=== PATIENT | female | born 1985 | race African-American/Black ===

== ENCOUNTER 2017-07-20 07:44 | Emergency (ER) | payer MEDICARE, MEDICAID ==
--- NOTE | 2017-07-20 08:32 | RAD ---
PA AND LATERAL VIEWS OF CHEST: Date: 07/20/17 HISTORY: Cough. Fever. FINDINGS: Comparison made with exam of 04/19/14. The cardiomediastinum is normal. The lungs are well expanded and clear. The bony thorax is normal. IMPRESSION: Normal exam. POS: OFF
[2017-07-20] MEDS ORDERED: Acetaminophen 500 MG TAB ONE (08:54)
== END 2017-07-20 10:20 | disposition home or self-care (01) ==
LOC: ERS 07:44
DX: B34.9 Viral infection, unspecified (principal)
CPT/HCPCS: 71020

== ENCOUNTER 2018-08-04 21:36 | Emergency (ER) | payer MEDICARE, MEDICAID | END 2018-08-04 21:55 | disposition home or self-care (01) | LOC: ERS 21:36 | DX: K04.7 Periapical abscess without sinus (principal); K02.9 Dental caries, unspecified; Z79.899 Other long term (current) drug therapy | CPT/HCPCS: 99282 ==

== ENCOUNTER 2018-08-28 16:51 | Emergency (ER) | payer MEDICARE, MEDICAID ==
[2018-08-28] MEDS ORDERED: Ondansetron PF 4 MG/2 ML Vial ONE (17:22)
[2018-08-28 17:42] LABS: Bilirubin Negative (Negative); Blood, Urine Negative (Negative); Clarity CLOUDY (Clear); Glucose, Urine (Dipstick) Negative (Negative); Leukocyte Large (Negative); Nitrite Positive (Negative); Protein, Urine (Dipstick) Negative (Neg-Trace); Specific Gravity, Urine 1.021 (1.002-1.036); pH, Urine 6.5 (5.0-9.0)
[2018-08-28 17:45] LABS: Bacteria/HPF 4+ HPF (None Seen); Hyaline Casts/LPF 0-3 HYALINE CAST LPF (0-3 Hyaline); Pathc Cast-AUWi Flag 0.58 (0-2.49)
[2018-08-28 17:49] LABS: BHCG - Serum Negative (NEGATIVE); Pregs Control Background? CLEAR/WHITE (CLR/WHITE); Pregs Control Bar Appear? YES (CONTROL BAR)
[2018-08-28 18:03] LABS: #Eosinphils 0.1 thou/uL (0.0-0.7); #Lymphocytes 2.6 thou/uL (1.20-3.40); #Monocytes 1.1 thou/uL (0.11-0.59); #Neutrophils 6.1 thou/uL (1.40-6.50); %Basophils 0.1 % (0.0-1.0); %Eosinophils 1.4 % (0.0-10.0); %Lymphocytes 26.4 % (21.0-51.0); %Monocytes 11.3 % (0.0-10.0); %Neutrophils 60.9 % (42.0-75.0); ALT (SGPT) 7 U/L (8-55); AST (SGOT) 12 U/L (5-34); Albumin 4.1 g/dL (3.5-5.0); Alkaline Phosphatase 65 U/L (40-150); Anion Gap 11 mmol/L (10-20); BUN (Urea Nitrogen) 9 mg/dL (7.0-18.7); Bilirubin, Total 0.9 mg/dL (0.2-1.2); Calc. Creatinine Clearance 0 mL/min (70-130); Calcium 9.3 mg/dL (7.8-10.44); Carbon Dioxide 26 mmol/L (22-29); Chloride 105 mmol/L (98-107); Estimated GFR-MDRD Greater than 90; Globulin 3.4 g/dL (2.4-3.5); Glucose 91 mg/dL (70-105); Hemoglobin 14.9 g/dL (12.0-16.0); Lipase 19 U/L (8-78); Mean Corpuscular HGB CONC 34.8 g/dL (32.0-36.0); Mean Corpuscular Hemoglobin 31.4 pg (27.0-31.0); Mean Corpuscular Volume 90.3 fL (78.0-98.0); Mean Platelet Volume 8.1 fL (7.4-10.4); Platelet Count 187 thou/uL (130-400); Potassium 3.4 mmol/L (3.5-5.1); Protein, Total 7.5 g/dL (6.0-8.3); RBC Distribution Width 11.6 % (11.5-14.5); Red Blood Cell (RBC) Count 4.75 mill/uL (4.20-5.40); Sodium 139 mmol/L (136-145)
[2018-08-28] MEDS ORDERED: Sulfameth/Trimethoprim DS 800-160mg TAB ONE (18:22)
[2018-08-28] MEDS ORDERED: cefTRIAXone\\ROCEPHIN 1 GM VIAL ONE (18:22)
--- NOTE | 2018-08-28 18:55 | CT ---
CT OF THE ABDOMEN AND PELVIS WITH IV CONTRAST: 08/28/18 PROVIDED CLINICAL HISTORY: Abdominal pain. FINDINGS: The visualized lung bases are free of significant opacity. The liver, spleen, pancreas, kidneys, and adrenal glands appear unremarkable. Evaluation for fat stranding is limited given paucity of intra-abdominal fat and lack of enteric cont rast material. There is no evidence for bowel obstruction. There is no evidence for free air. There i s no evidence for significant free intraperitoneal fluid. There is an enlarged and inhomogeneous appe arance to the uterus that may reflect changes related to phase of menstruation. The appendix is parti ally visualized and the partially visualized portions appear normal. The osseous structures demonstrate no concerning osteoblastic or osteolytic lesions. IMPRESSION: No definite evidence for an acute process with limitations as above. POS: RODOLFO
== END 2018-08-28 19:59 | disposition home or self-care (01) ==
LOC: ERS 16:51
DX: N39.0 Urinary tract infection, site not specified (principal); J06.9 Acute upper respiratory infection, unspecified; F31.9 Bipolar disorder, unspecified; Z79.899 Other long term (current) drug therapy
CPT/HCPCS: 74177; 80053; 81003; 81015; 83690; 84703; 85025; 96361; 96365; 96375; J0696; J2405

== ENCOUNTER 2019-01-27 14:05 | Emergency (ER) | payer MEDICARE, OTHER ==
[2019-01-27] MEDS ORDERED: Dexamethasone 10 MG/ML VIAL ONE (14:23)
== END 2019-01-27 14:27 | disposition home or self-care (01) ==
LOC: ERS 14:05
DX: J32.0 Chronic maxillary sinusitis (principal); F31.9 Bipolar disorder, unspecified; F41.9 Anxiety disorder, unspecified; F17.210 Nicotine dependence, cigarettes, uncomplicated; Z79.899 Other long term (current) drug therapy
CPT/HCPCS: 99283; J1100

== ENCOUNTER 2019-02-06 21:49 | Emergency (ER) | payer MEDICARE, OTHER ==
[2019-02-06] MEDS ORDERED: Dexamethasone 4 mg/ml Vial ONE (22:02)
== END 2019-02-06 22:10 | disposition home or self-care (01) ==
LOC: ERS 21:49
DX: J02.9 Acute pharyngitis, unspecified (principal); F41.9 Anxiety disorder, unspecified; F17.210 Nicotine dependence, cigarettes, uncomplicated
CPT/HCPCS: 99282; J1100

== ENCOUNTER 2019-05-01 14:08 | Emergency (ER) | payer MEDICARE, OTHER | END 2019-05-01 14:43 | disposition home or self-care (01) | LOC: ERS 14:08 | DX: S91.312D Laceration without foreign body, left foot, subsequent encounter (principal); F41.9 Anxiety disorder, unspecified; F33.9 Major depressive disorder, recurrent, unspecified; Z79.899 Other long term (current) drug therapy; W20.8XXA Other cause of strike by thrown, projected or falling object, initial encounter ==

== ENCOUNTER 2019-06-20 17:05 | Emergency (ER) | payer MEDICARE, OTHER ==
[2019-06-20] MEDS ORDERED: Ketorolac Tromethamine 30 MG/ML VIAL ONE (17:33)
--- NOTE | 2019-06-20 17:36 | RAD ---
Chest one view HISTORY: Cough. Fever. Dyspnea. COMPARISON: 07/20/2017. FINDINGS: Cardiac silhouette is magnified by projection. Pulmonary vasculature is unremarkable. Media stinum is midline. No lobar consolidation or evidence of pneumothorax. IMPRESSION: No active cardiopulmonary abnormalities are demonstrated.
--- NOTE | 2019-06-20 17:53 | RAD ---
Chest one view, lateral view only: HISTORY: Cough COMPARISON: 06/20/2019 5:13 PM PA radiograph No acute intrathoracic disease. No evidence for pneumonia. IMPRESSION: No evidence for pneumonia.
[2019-06-20 17:56] LABS: #Basophils 0.1 thou/uL (0.0-0.2); #Eosinphils 0.2 thou/uL (0.0-0.7); #Lymphocytes 2.7 thou/uL (1.20-3.40); #Monocytes 0.8 thou/uL (0.11-0.59); #Neutrophils 4.1 thou/uL (1.40-6.50); %Basophils 1.4 % (0.0-1.0); %Lymphocytes 34.2 % (21.0-51.0); %Monocytes 9.8 % (0.0-10.0); %Neutrophils 51.6 % (42.0-75.0); Mean Corpuscular HGB CONC 36.2 g/dL (32.0-36.0); Mean Corpuscular Hemoglobin 32.8 pg (27.0-31.0); Mean Corpuscular Volume 90.7 fL (78.0-98.0); Mean Platelet Volume 8.2 fL (7.4-10.4); Platelet Count 210 thou/uL (130-400); RBC Distribution Width 11.7 % (11.5-14.5); Red Blood Cell (RBC) Count 4.57 mill/uL (4.20-5.40); White Blood Cell (WBC) Count 7.9 thou/uL (4.8-10.8)
[2019-06-20 17:59] LABS: BHCG - Serum Negative (NEGATIVE); Pregs Control Background? CLEAR/WHITE (CLR/WHITE); Pregs Control Bar Appear? YES (CONTROL BAR)
[2019-06-20 18:13] LABS: ALT (SGPT) Less than 7 U/L (8-55); AST (SGOT) 11 U/L (5-34); Albumin 3.7 g/dL (3.5-5.0); Alkaline Phosphatase 60 U/L (40-110); Anion Gap 12 mmol/L (10-20); BUN (Urea Nitrogen) 5 mg/dL (7.0-18.7); Bilirubin, Total 0.3 mg/dL (0.2-1.2); Calc. Creatinine Clearance 0 mL/min (70-130); Calcium 8.8 mg/dL (7.8-10.44); Carbon Dioxide 22 mmol/L (22-29); Chloride 106 mmol/L (98-107); Estimated GFR-MDRD Greater than 90; Globulin 3.4 g/dL (2.4-3.5); Glucose 105 mg/dL (70-105); Potassium 3.5 mmol/L (3.5-5.1); Protein, Total 7.1 g/dL (6.0-8.3); Sodium 136 mmol/L (136-145)
--- NOTE | 2019-06-20 19:23 | CT ---
CT ANGIO OF CHEST WITH AND WITHOUT CONTRAST: 06/20/19 HISTORY: Cough. Fever and chills. Chest pain. FINDINGS: There is good contrast opacification of the pulmonary arteries and thoracic aorta with normal branchi ng of the great vessels at the aortic arch. Airway is patent. No pleural fluid, mediastinal adenopath y, or focal air space disease. IMPRESSION: Normal exam. POS: BST
== END 2019-06-20 20:08 | disposition home or self-care (01) ==
LOC: ERS 17:05
DX: J02.9 Acute pharyngitis, unspecified (principal); F41.9 Anxiety disorder, unspecified; F31.9 Bipolar disorder, unspecified; F17.210 Nicotine dependence, cigarettes, uncomplicated
CPT/HCPCS: 71045; 71275; 80053; 84484; 84703; 85025; 85379; 87804; 93005; 96374; J1885

== ENCOUNTER 2020-05-28 11:29 | Emergency (ER) | payer MEDICARE, OTHER ==
[2020-05-29 15:39] LABS: SARS-CoV-2 MS2 Positive; SARS-CoV-2 N Gene Negative; SARS-CoV-2 S Gene Negative; SARS-CoV-2 by NAA Not Detected (NotDetected); SARS-CoV-2 orf1ab Negative
== END 2020-05-28 12:00 | disposition home or self-care (01) ==
LOC: ERS 11:29
DX: Z20.828 Contact with and (suspected) exposure to other viral communicable diseases (principal); F41.9 Anxiety disorder, unspecified; F31.9 Bipolar disorder, unspecified; F17.210 Nicotine dependence, cigarettes, uncomplicated
CPT/HCPCS: 99283; U0003; 87635

== ENCOUNTER 2020-09-26 18:24 | Emergency (ER) | payer MEDICARE, OTHER ==
--- NOTE | 2020-09-26 21:30 | CT ---
CT BRAIN WITHOUT CONTRAST: HISTORY: Hypertension, headache COMPARISON: 06/01/2014 FINDINGS: No evidence of acute infarct, hemorrhage, midline shift or abnormal extra-axial fluid collections is seen. The ventricular size is appropriate and the basilar cisterns are patent. The bony calvarium is intact. The visualized paranasal sinuses and mastoid air cells are well aerated. IMPRESSION: No CT evidence of acute intracranial process.
[2020-09-26] MEDS ORDERED: Metoclopramide HCl 10 MG/2 ML VIAL ONE (21:51)
[2020-09-26] MEDS ORDERED: diphenhydrAMINE 50 MG/ML VIAL ONE (21:51)
[2020-09-26] MEDS ORDERED: Ketorolac Tromethamine 30 MG/ML VIAL ONE (21:51)
[2020-09-26 22:01] LABS: Bacteria/HPF 4+ HPF (None Seen); Bilirubin Negative (Negative); Blood, Urine Negative (Negative); Clarity Turbid (Clear); Glucose, Urine (Dipstick) Normal (Negative); Ketone, Urine Negative (Negative); Leukocyte 500 Leu/uL (Negative); Nitrite Negative (Negative); Protein, Urine (Dipstick) Negative (Neg-Trace); RBC/HPF 0-3 HPF (0-3); Urobilinogen 3 mg/dL (Less than 2); WBC/HPF Greater than 50 HPF (0-3)
[2020-09-26 22:09] LABS: #Basophils 0.1 thou/uL (0.0-0.2); #Eosinphils 0.3 thou/uL (0.0-0.7); #Lymphocytes 4.1 thou/uL (1.20-3.40); #Monocytes 0.9 thou/uL (0.11-0.59); #Neutrophils 3.7 thou/uL (1.40-6.50); %Basophils 1.3 % (0.0-1.0); %Eosinophils 3.1 % (0.0-10.0); %Lymphocytes 45.2 % (21.0-51.0); %Monocytes 9.4 % (0.0-10.0); %Neutrophils 41.1 % (42.0-75.0); ALT (SGPT) 7 U/L (8-55); AST (SGOT) 13 U/L (5-34); Albumin 3.8 g/dL (3.5-5.0); Alkaline Phosphatase 56 U/L (40-110); Anion Gap 15 mmol/L (10-20); BUN (Urea Nitrogen) 9 mg/dL (7.0-18.7); Bilirubin, Total 0.4 mg/dL (0.2-1.2); Calc. Creatinine Clearance 0 mL/min (70-130); Calcium 8.7 mg/dL (7.8-10.44); Carbon Dioxide 22 mmol/L (22-29); Chloride 107 mmol/L (98-107); Globulin 3.3 g/dL (2.4-3.5); Glucose 92 mg/dL (70-105); Hemoglobin 15.7 g/dL (12.0-16.0); Mean Corpuscular HGB CONC 35.8 g/dL (32.0-36.0); Mean Corpuscular Hemoglobin 33.7 pg (27.0-31.0); Mean Platelet Volume 8.2 fL (7.4-10.4); Platelet Count 186 thou/uL (130-400); Protein, Total 7.1 g/dL (6.0-8.3); RBC Distribution Width 11.8 % (11.5-14.5); Red Blood Cell (RBC) Count 4.67 mill/uL (4.20-5.40); Sodium 140 mmol/L (136-145); White Blood Cell (WBC) Count 9.1 thou/uL (4.8-10.8)
[2020-09-26 22:15] LABS: BHCG - Serum Negative (NEGATIVE); Pregs Control Background? CLEAR/WHITE (CLR/WHITE); Pregs Control Bar Appear? YES (CONTROL BAR)
== END 2020-09-26 23:10 | disposition home or self-care (01) ==
LOC: ERS 18:24
DX: I10 Essential (primary) hypertension (principal); R51.9 Headache, unspecified; N39.0 Urinary tract infection, site not specified; F17.210 Nicotine dependence, cigarettes, uncomplicated
CPT/HCPCS: 36415; 70450; 80053; 81003; 81015; 84703; 85025; 96365; 96375; J1200; J1885; J2765

== ENCOUNTER 2020-12-02 14:45 | Emergency (ER) | payer MEDICARE, OTHER | END 2020-12-02 16:10 | disposition left against medical advice (07) | LOC: ERS 14:45 | DX: Z53.21 Procedure and treatment not carried out due to patient leaving prior to being seen by health care provider (principal) ==

== ENCOUNTER 2021-03-18 16:53 | Emergency (ER) | payer MEDICARE, OTHER | END 2021-03-18 19:00 | disposition home or self-care (01) | LOC: ERS 16:53 | DX: M79.10 Myalgia, unspecified site (principal); M79.671 Pain in right foot; R07.81 Pleurodynia; F17.210 Nicotine dependence, cigarettes, uncomplicated | CPT/HCPCS: 70450 ==

== ENCOUNTER 2021-06-16 18:28 | Emergency (ER) | payer MEDICARE, OTHER ==
[~2021-06-16 18:28] MED LIST: Iopamidol-370 76% 500 ML 1 ML ONE
[2021-06-16] MEDS ORDERED: Ketorolac Tromethamine 30 MG/ML VIAL ONE (20:04)
[2021-06-16] MEDS ORDERED: Ondansetron PF 4 MG/2 ML Vial ONE (20:04)
[2021-06-16 20:11] LABS: BHCG - Serum Negative (NEGATIVE); Pregs Control Background? CLEAR/WHITE (CLR/WHITE); Pregs Control Bar Appear? YES (CONTROL BAR)
[2021-06-16 20:19] LABS: Hemoglobin 14.2 g/dL (12.0-16.0); Mean Corpuscular HGB CONC 35.2 g/dL (32.0-36.0); Mean Corpuscular Hemoglobin 32.7 pg (27.0-31.0); Mean Corpuscular Volume 92.9 fL (78.0-98.0); Mean Platelet Volume 8.4 fL (7.4-10.4); Platelet Count 153 thou/uL (130-400); RBC Distribution Width 12.1 % (11.5-14.5); Red Blood Cell (RBC) Count 4.33 mill/uL (4.20-5.40)
[2021-06-16 20:22] LABS: ALT (SGPT) Less than 7 U/L (8-55); AST (SGOT) 9 U/L (5-34); Albumin 3.8 g/dL (3.5-5.0); Alkaline Phosphatase 52 U/L (40-110); Anion Gap 9 mmol/L (10-20); BUN (Urea Nitrogen) 10 mg/dL (7.0-18.7); Bilirubin, Total 0.7 mg/dL (0.2-1.2); Calc. Creatinine Clearance 0 mL/min (70-130); Calcium 9.1 mg/dL (7.8-10.44); Carbon Dioxide 28 mmol/L (22-29); Chloride 106 mmol/L (98-107); Globulin 2.9 g/dL (2.4-3.5); Glucose 96 mg/dL (70-105); Lipase 27 U/L (8-78); Protein, Total 6.7 g/dL (6.0-8.3); Sodium 139 mmol/L (136-145)
[2021-06-16 20:43] LABS: Eosinophils 2 % (0-10); Lymphocytes 39 % (21-51); MDiff Complete? YES; Monocytes 13 % (0-10); Neutrophil 44 % (42-75); Reactive Lymphocytes 2 % (0-10); White Blood Cell (WBC) Count 5.9 thou/uL (4.8-10.8)
== END 2021-06-16 23:22 | disposition home or self-care (01) ==
LOC: ERS 18:28
DX: R10.33 Periumbilical pain (principal); R11.2 Nausea with vomiting, unspecified; F17.210 Nicotine dependence, cigarettes, uncomplicated
CPT/HCPCS: 36415; 74177; 80053; 83690; 84703; 85025; 96372; 96374; 96375; J0500; J1885; J2405; Q9967

== ENCOUNTER 2021-08-21 05:38 | Emergency (ER) | payer MEDICARE, OTHER ==
[2021-08-21 06:52] LABS: BHCG - Serum Negative (NEGATIVE); Pregs Control Background? CLEAR/WHITE (CLR/WHITE); Pregs Control Bar Appear? YES (CONTROL BAR)
[2021-08-21 07:05] LABS: ALT (SGPT) Less than 7 U/L (8-55); AST (SGOT) 10 U/L (5-34); Albumin 3.8 g/dL (3.5-5.0); Alkaline Phosphatase 57 U/L (40-110); Anion Gap 11 mmol/L (10-20); BUN (Urea Nitrogen) 7 mg/dL (7.0-18.7); Bilirubin, Total 0.6 mg/dL (0.2-1.2); Calc. Creatinine Clearance 0 mL/min (70-130); Calcium 9.1 mg/dL (7.8-10.44); Carbon Dioxide 24 mmol/L (22-29); Chloride 106 mmol/L (98-107); Globulin 3.2 g/dL (2.4-3.5); Glucose 78 mg/dL (70-105); Potassium 3.9 mmol/L (3.5-5.1); Sodium 137 mmol/L (136-145)
[2021-08-21] MEDS ORDERED: Ketorolac Tromethamine 30 MG/ML VIAL ONE (08:02)
== END 2021-08-21 08:16 | disposition home or self-care (01) ==
LOC: ERS 05:38
DX: H92.02 Otalgia, left ear (principal); F17.210 Nicotine dependence, cigarettes, uncomplicated
CPT/HCPCS: 36415; 70450; 80053; 84703; 96372; J1885

== ENCOUNTER 2021-08-24 22:05 | Emergency (ER) | payer MEDICARE, OTHER ==
[2021-08-24] MEDS ORDERED: Ondansetron PF 4 MG/2 ML Vial ONE (23:29)
[2021-08-24] MEDS ORDERED: Ondansetron ODT 4 MG TAB ONE ×3 (23:29→23:36)
[2021-08-24] MEDS ORDERED: Acetaminophen 500 MG TAB ONE (23:36)
== END 2021-08-25 00:38 | disposition home or self-care (01) ==
LOC: ERS 22:05
DX: B34.9 Viral infection, unspecified (principal); F17.210 Nicotine dependence, cigarettes, uncomplicated
CPT/HCPCS: 99283; J2405; Q0162

== ENCOUNTER 2021-10-17 20:48 | Emergency (ER) | payer MEDICARE, OTHER ==
[2021-10-17] MEDS ORDERED: Diazepam 5 MG TAB ONE (23:27)
[2021-10-17] MEDS ORDERED: Ondansetron ODT 8 MG TAB ONE (23:28)
== END 2021-10-17 23:30 | disposition home or self-care (01) ==
LOC: ERS 20:48
DX: R51.9 Headache, unspecified (principal); F17.210 Nicotine dependence, cigarettes, uncomplicated
CPT/HCPCS: 99283; Q0162

== ENCOUNTER 2022-04-22 14:35 | Emergency (ER) | payer OTHER ==
[2022-04-22] MEDS ORDERED: Ketorolac Tromethamine 30 MG/ML VIAL ONE (15:49)
[2022-04-22] MEDS ORDERED: diphenhydrAMINE 50 MG/ML VIAL ONE (15:49)
[2022-04-22] MEDS ORDERED: Metoclopramide HCl 10 MG/2 ML VIAL ONE (15:49)
[2022-04-22] MEDS ORDERED: Acetaminophen 500 MG TAB ONE (15:49)
[2022-04-22 15:55] LABS: #Basophils 0.1 thou/uL (0.0-0.2); #Eosinphils 0.3 thou/uL (0.0-0.7); #Lymphocytes 2.2 thou/uL (1.20-3.40); #Monocytes 0.7 thou/uL (0.11-0.59); #Neutrophils 4.8 thou/uL (1.40-6.50); %Basophils 1.1 % (0.0-1.0); %Eosinophils 3.6 % (0.0-10.0); %Lymphocytes 27.1 % (21.0-51.0); %Monocytes 9.2 % (0.0-10.0); Hemoglobin 14.2 g/dL (12.0-16.0); Mean Corpuscular Hemoglobin 33.2 pg (27.0-31.0); Mean Corpuscular Volume 94.7 fL (78.0-98.0); Mean Platelet Volume 8.1 fL (7.4-10.4); Platelet Count 174 thou/uL (130-400); RBC Distribution Width 11.7 % (11.5-14.5); Red Blood Cell (RBC) Count 4.29 mill/uL (4.20-5.40); White Blood Cell (WBC) Count 8.1 thou/uL (4.8-10.8)
[2022-04-22 16:16] LABS: ALT (SGPT) Less than 7 U/L (8-55); AST (SGOT) 11 U/L (5-34); Albumin 3.7 g/dL (3.5-5.0); Alkaline Phosphatase 53 U/L (40-110); Anion Gap 12 mmol/L (10-20); BUN (Urea Nitrogen) 7 mg/dL (7.0-18.7); Bilirubin, Total 0.8 mg/dL (0.2-1.2); Calc. Creatinine Clearance 0 mL/min (70-130); Calcium 8.8 mg/dL (7.8-10.44); Carbon Dioxide 23 mmol/L (22-29); Chloride 106 mmol/L (98-107); Estimated GFR 107; Glucose 146 mg/dL (70-105); Potassium 3.3 mmol/L (3.5-5.1); Protein, Total 6.7 g/dL (6.0-8.3); Sodium 138 mmol/L (136-145)
[2022-04-22 16:18] LABS: BHCG - Serum Negative (NEGATIVE); Pregs Control Background? CLEAR/WHITE (CLR/WHITE); Pregs Control Bar Appear? YES (CONTROL BAR)
== END 2022-04-22 17:17 | disposition home or self-care (01) ==
LOC: ERS 14:35
DX: L03.213 Periorbital cellulitis (principal); F17.200 Nicotine dependence, unspecified, uncomplicated
CPT/HCPCS: 70487; 80053; 84703; 85025; 94760; 96365; 96375; J1200; J1885; J2765; Q9967